=== PATIENT | female | born 1980 ===

== ENCOUNTER → 2019-05-25 | Outpatient (REF) | payer OTHER ==
[2019-05-25 14:49] LABS: HEMOGLOBIN A1c 4.7 %
[2019-05-25 14:53] LABS: RHEUMATOID FACTOR QUANT < 10.0 IU/ML (<15.0); TOTAL PROTEIN 7.2 GM/DL (6.4-8.2)
[2019-05-25 15:03] LABS: FOLATE 4.5 NG/ML; VITAMIN B12 LEVEL 541 PG/ML
[2019-05-30 09:34] LABS: ALBUMIN % 56.9 % (55.8-66.1); ALPHA-1-GLOBULIN % 5.5 % (2.9-4.9); ALPHA-2-GLOBULINS 0.89 GM/DL (0.42-0.99); ALPHA-2-GLOBULINS % 12.3 % (7.1-11.8); BETA-1-GLOBULINS 0.53 GM/DL (0.28-0.60); BETA-1-GLOBULINS % 7.3 % (4.7-7.2)
[2019-05-30 09:35] LABS: BETA-2-GLOBULINS 0.39 GM/DL (0.19-0.55); BETA-2-GLOBULINS % 5.4 % (3.2-6.5); GAMMA GLOBULIN % 12.6 % (11.1-18.8); GAMMA GLOBULINS 0.91 GM/DL (0.65-1.58)
== END ==
LOC: M LABNEURO 10:12
PROVIDERS: ATTEND Psychiatry & Neurology Neurology
DX: G62.9 Polyneuropathy, unspecified (principal); E11.9 Type 2 diabetes mellitus without complications